=== PATIENT | female | born 1965 | race American Indian/Alaskan Native ===

== ENCOUNTER 2016-10-28 09:26 | Outpatient (CLI) | payer BC ==
--- NOTE | 2016-10-28 11:44 | Magnetic Resonance Report ---
MRI of the brain with and without contrast. History: Multiple sclerosis. Procedure: Routine brain protocol with and without contrast. Findings: Comparison is made to a previous similar study performed on October 16, 2014. There are bilateral periventricular white matter signal abnormalities including Cornelius's fingers, the overall pattern of which has not changed appreciably since 2014. No new white matter lesions are identified. No enhancing lesions are seen after contrast ministration. There is no restricted diffusion. The posterior fossa demonstrates minimal ill-defined T2 hyperintensities in the jay bilaterally, unchanged since the previous study. The cerebellum is unremarkable. There are no extra-axial collections. The pituitary gland appears normal. The cerebellar tonsils are in normal location. The visualized extracranial structures are normal except for evidence of mild chronic ethmoid sinus disease. Impression: Stable white matter lesions without enhancement, similar to the previous study in September of 2014. No new abnormalities or enhancing lesions are identified. 2. Mild chronic ethmoid sinus disease.
== END 2016-10-28 09:27 | disposition home or self-care (01) ==
LOC: MRI 09:26
PROVIDERS: ATTEND Internal Medicine
DX: G35 Multiple sclerosis (principal); J32.2 Chronic ethmoidal sinusitis
CPT/HCPCS: 70553; A9577

== ENCOUNTER 2017-04-07 07:05 | Outpatient (CLI) | payer BC ==
--- NOTE | 2017-04-07 17:47 | Magnetic Resonance Report ---
MR scan of the cranium was performed with and without contrast. Pulse sequences included: 1. T1 weighted sagittal and axial images without contrast and T1 axial and coronal images with contrast 2. T2 weighted axial, sagittal and coronal images 3. FLAIR axial images 4. Diffusion-weighted axial images 5. Apparent diffusion coefficient images 6. T2 gradient echo images Views of the posterior fossa showed a normal craniocervical junction. Cerebellar pontine angles were normal with normal seventh-eighth nerve complexes. Brainstem and cerebellum were normal. The ventricular system showed no dilatation or distortion. Images of the hemispheres showed Cornelius's fingers and multiple areas of increased signal in the periventricular white matter. Sinuses, pituitary, flow voids in the [place], orbits, and basal ganglia were normal. There are no abnormal areas of enhancement with contrast. Impression: Abnormal MR scan of the cranium with and without contrast a. multiple areas of increased signal in the periventricular white matter consistent with the diagnosis of multiple sclerosis This study was compared to the patient's previous study of 10/28/2016 and no change was seen.
== END 2017-04-07 07:06 | disposition home or self-care (01) ==
LOC: MRI 07:05
PROVIDERS: ATTEND Specialist
DX: G35 Multiple sclerosis (principal); R93.8 Abnormal findings on diagnostic imaging of other specified body structures
CPT/HCPCS: 70553; A9577